=== PATIENT | male | born 1965 | race Caucasian/White ===

== ENCOUNTER 2020-07-13 12:59 | Emergency (ER) | payer OTHER, SELFPAY ==
[2020-07-13] MEDS ORDERED: SMZ./TMP. 800/160 MG TABLET ONE (15:10)
[2020-07-13] MEDS ORDERED: DOXYCYCLINE 100 MG CAP PO ONE (15:10)
--- NOTE | 2020-07-13 15:27 | RAD REPORT ---
EXAM DESCRIPTION: RAD - Elbow Left 3 View - 07/13/2020 3:06 pm CLINICAL HISTORY: Left elbow pain FINDINGS: No fracture or dislocation is seen. No significant bone or joint abnormality seen
--- NOTE | 2020-07-13 16:00 | ER ---
Nurse's Notes [facility] Name: Marcos Flowers Age: 55 yrs Sex: Male : 1965 Arrival Date: 07/13/2020 Time: 13:03 Bed 6 Private MD: Diagnosis: Olecranon bursitis, left elbow;Cellulitis and acute lymphangitis of other parts of limb-ELBOW Presentation: 07/13 13:05 Chief complaint: Patient states: left elbow swelling since and the swelling sv has increased down to the hand. Coronavirus screen: Client denies travel out of the [place] in the last 14 days. At this time, the client does not indicate any symptoms associated with coronavirus-19. Ebola Screen: No symptoms or risks identified at this time. Risk Assessment: Do you want to hurt yourself or someone else? Patient reports no desire to harm self or others. Onset of symptoms was July 10, 2020. 13:05 Method Of Arrival: Ambulatory sv 13:05 Acuity: ANNIE 3 sv 13:06 Initial Sepsis Screen: Does the patient meet any 2 criteria? HR > 90 bpm. No. Patient's sv initial sepsis screen is negative. Does the patient have a suspected source of infection? No. Patient's initial sepsis screen is negative. Triage Assessment: 13:08 General: Appears in no apparent distress. comfortable, Behavior is calm, cooperative, sv appropriate for age. Pain: Denies pain. Neuro: Level of Consciousness is awake, alert, obeys commands, Oriented to person, place, time, situation, Gait is steady. Respiratory: Airway is patent Respiratory effort is even, unlabored, Respiratory pattern is regular, symmetrical. Musculoskeletal: Swelling present in left elbow. Historical: - Allergies: 13:06 Codeine; sv - PMHx: 13:06 None; sv - PSHx: 13:06 Knee surgery; sv - Immunization history:: Adult Immunizations up to date. - Social history:: Smoking status: Patient reports the use of cigarette tobacco products, smokes two packs cigarettes per day. - Family history:: not pertinent. Screenin:13 Abuse screen: Denies threats or abuse. Nutritional screening: No deficits noted. ll1 Tuberculosis screening: No symptoms or risk factors identified. Fall Risk Total Coppola Fall Scale indicates No Risk (0-24 pts). Assessment: 14:55 General: Appears in no apparent distress. Behavior is calm, cooperative, appropriate ll1 for age. Pain: Complains of pain in left elbow Quality of pain is described as aching. Derm: Skin is red, Skin temperature is hot L elbow red, hot, and tender Reports redness L elbow. Musculoskeletal: Circulation, motion, and sensation intact. Capillary refill < 3 seconds, Range of motion: intact in all extremities, Reports pain in left elbow. Vital Signs: 13:06 BP 129 / 85; Pulse 97; Resp 16; Temp 98.7(TE); Pulse Ox 100% on R/A; Weight 70.31 kg; sv Height 5 ft. 11 in. (180.34 cm); 13:06 Body Mass Index 21.62 (70.31 kg, 180.34 cm) sv ED Course: 13:03 Patient arrived in ED. mr 13:05 Triage completed. sv 13:06 Arm band placed on. sv 14:35 Vandana Clinton, ANTHONY is Primary Nurse. ll1 14:36 Remy Hackett MD is Attending Physician. fan 14:36 Patient placed in an exam room, on a stretcher. ll1 15:04 Elbow Left 3 View XRAY In Process Unspecified. EDMS 15:58 Christian Cohn MD is Referral Physician. fan 16:13 No provider procedures requiring assistance completed. Patient did not have IV access ll1 during this emergency room visit. 16:14 Patient has correct armband on for positive identification. Bed in low position. Call ll1 light in reach. Cardiac monitoring not applicable on this patient. Administered Medications: 14:57 Drug: Bactrim (160 mg-800 mg (DS) 1 tablet Route: PO; ll1 16:11 Follow up: Response: No adverse reaction; RASS: Alert and Calm (0) ll1 14:57 Drug: Doxycycline 200 mg Route: PO; ll1 16:11 Follow up: Response: No adverse reaction; RASS: Alert and Calm (0) ll1 Outcome: 16:00 Discharge ordered by . fan 16:13 Discharged to home ambulatory. ll1 16:13 Condition: stable 16:13 Discharge instructions given to patient, Instructed on discharge instructions, follow up and referral plans. medication usage, Demonstrated understanding of instructions, follow-up care, medications, Prescriptions given X 3. 16:14 Patient left the ED. ll1 Signatures: Dispatcher [employer] Mariana Woods RN RN sv Anderson, Corey, MD MD [facility] mr Vandana Clinton RN RN ll1 Corrections: (The following items were deleted from the chart) 13:07 13:06 Pulse 97bpm; Resp 16bpm; Pulse Ox 100% RA; Temp 98.7F Temporal; 70.31 kg; Height sv 5 ft. 11 in.; BMI: 21.6; sv
--- NOTE | 2020-07-13 16:00 | EDPHYS ---
Physician Documentation [facility] Name: Marcos Flowers Age: 55 yrs Sex: Male : 1965 Arrival Date: 07/13/2020 Time: 13:03 Bed 6 Private MD: ED Physician Remy Hackett HPI: 07/13 15:47 This 55 yrs old Male presents to ER via Ambulatory with complaints of Elbow fan arm swelling. 15:47 The patient or guardian complains of pain, swelling, tenderness. The complaints affect fan the left elbow. Context: The problem was sustained at an unknown location. Onset: The symptoms/episode began/occurred 3 day(s) ago. Treatment prior to arrival includes: no previous treatment. Modifying factors: The symptoms are alleviated by remaining still, the symptoms are aggravated by movement, lifting weight, bending arm. Associated signs and symptoms: Pertinent positives:. Severity of symptoms: At their worst the symptoms were mild, in the emergency department the symptoms are unchanged. The patient has not experienced similar symptoms in the past. Historical: - Allergies: 13:06 Codeine; sv - PMHx: 13:06 None; sv - PSHx: 13:06 Knee surgery; sv - Immunization history:: Adult Immunizations up to date. - Social history:: Smoking status: Patient reports the use of cigarette tobacco products, smokes two packs cigarettes per day. - Family history:: not pertinent. ROS: 15:47 Constitutional: Negative for fever, chills, and weight loss, Eyes: Negative for injury, fan pain, redness, and discharge, ENT: Negative for injury, pain, and discharge, Neck: Negative for injury, pain, and swelling, Cardiovascular: Negative for chest pain, palpitations, and edema, Respiratory: Negative for shortness of breath, cough, wheezing, and pleuritic chest pain, Abdomen/GI: Negative for abdominal pain, nausea, vomiting, diarrhea, and constipation, Back: Negative for injury and pain, : Negative for injury, bleeding, discharge, and swelling, Skin: Negative for injury, rash, and discoloration, Neuro: Negative for headache, weakness, numbness, tingling, and seizure, Psych: Negative for depression, anxiety, suicide ideation, homicidal ideation, and hallucinations, Allergy/Immunology: Negative for hives, rash, and allergies, Endocrine: Negative for neck swelling, polydipsia, polyuria, polyphagia, and marked weight changes, Hematologic/Lymphatic: Negative for swollen nodes, abnormal bleeding, and unusual bruising. 15:47 MS/extremity: Positive for erythema, pain, swelling, tenderness, of the left elbow. Exam: 15:47 Constitutional: This is a well developed, well nourished patient who is awake, alert, fan and in no acute distress. Head/Face: Normocephalic, atraumatic. Eyes: Pupils equal round and reactive to light, extra-ocular motions intact. Lids and lashes normal. Conjunctiva and sclera are non-icteric and not injected. Cornea within normal limits. Periorbital areas with no swelling, redness, or edema. ENT: Nares patent. No nasal discharge, no septal abnormalities noted. Tympanic membranes are normal and external auditory canals are clear. Oropharynx with no redness, swelling, or masses, exudates, or evidence of obstruction, uvula midline. Mucous membranes moist. Neck: Trachea midline, no thyromegaly or masses palpated, and no cervical lymphadenopathy. Supple, full range of motion without nuchal rigidity, or vertebral point tenderness. No Meningismus. Chest/axilla: Normal chest wall appearance and motion. Nontender with no deformity. No lesions are appreciated. Cardiovascular: Regular rate and rhythm with a normal S1 and S2. No gallops, murmurs, or rubs. Normal PMI, no JVD. No pulse deficits. Respiratory: Lungs have equal breath sounds bilaterally, clear to auscultation and percussion. No rales, rhonchi or wheezes noted. No increased work of breathing, no retractions or nasal flaring. Abdomen/GI: Soft, non-tender, with normal bowel sounds. No distension or tympany. No guarding or rebound. No evidence of tenderness throughout. Back: No spinal tenderness. No costovertebral tenderness. Full range of motion. Male : Normal genitalia with no discharge or lesions. Skin: Warm, dry with normal turgor. Normal color with no rashes, no lesions, and no evidence of cellulitis. Neuro: Awake and alert, GCS 15, oriented to person, place, time, and situation. Cranial nerves II-XII grossly intact. Motor strength 5/5 in all extremities. Sensory grossly intact. Cerebellar exam normal. Normal gait. Psych: Awake, alert, with orientation to person, place and time. Behavior, mood, and affect are within normal limits. 15:47 Musculoskeletal/extremity: ROM: intact in all extremities, full active range of motion, full passive range of motion, Circulation is intact in all extremities. Sensation intact. Compartment Syndrome exam of affected extremity: is normal. Joints: All joints appear normal with full range of motion. DVT Exam: negative Homans' sign noted on exam, no appreciated bluish discoloration, pain, swelling, tenderness, erythema, increased warmth. Vital Signs: 13:06 BP 129 / 85; Pulse 97; Resp 16; Temp 98.7(TE); Pulse Ox 100% on R/A; Weight 70.31 kg; sv Height 5 ft. 11 in. (180.34 cm); 13:06 Body Mass Index 21.62 (70.31 kg, 180.34 cm) sv MDM: 14:36 Patient medically screened. [facility] 15:54 Differential diagnosis: contusion, tendonitis. Data reviewed: vital signs, nurses [facility] notes, radiologic studies, plain films. Data interpreted: home service technician: rate is 97 beats/min, rhythm is regular, Pulse oximetry: on room air is 100 %. Test interpretation: by ED physician or midlevel provider: plain radiologic studies. Counseling: I had a detailed discussion with the patient and/or guardian regarding: the historical points, exam findings, and any diagnostic results supporting the discharge/admit diagnosis, radiology results, the need for outpatient follow up, for definitive care, a family practitioner, a orthopedic surgeon. 07/13 14:47 Order name: Elbow Left 3 View XRAY [facility] 07/13 14:47 Order name: Ice pack; Complete Time: 14:51 [facility] Administered Medications: 14:57 Drug: Bactrim (160 mg-800 mg (DS) 1 tablet Route: PO; ll1 16:11 Follow up: Response: No adverse reaction; RASS: Alert and Calm (0) ll1 14:57 Drug: Doxycycline 200 mg Route: PO; ll1 16:11 Follow up: Response: No adverse reaction; RASS: Alert and Calm (0) ll1 Disposition: 07/13/20 16:00 Discharged to Home. Impression: Olecranon bursitis, left elbow, Cellulitis and acute lymphangitis of other parts of limb - ELBOW. - Condition is Stable. - Discharge Instructions: Bursitis, Cryotherapy, [id number], Cellulitis, Adult, [id number], Elbow Bursitis, Bursitis, [id number], Elbow Bursitis, [id number], Cryotherapy. - Prescriptions for Ibuprofen 600 mg Oral Tablet - take 1 tablet by ORAL route every 8 hours As needed take with food; 21 tablet. Doxycycline Hyclate 100 mg Oral Tablet - take 1 tablet by ORAL route every 12 hours; 20 tablet. Bactrim DS 800- 160 mg Oral Tablet - take 1 tablet by ORAL route every 12 hours for 10 days; 20 tablet. - Medication Reconciliation Form, Thank You Letter, Antibiotic Education, Prescription Opioid Use form. - Follow up: Private Physician; When: 2 - 3 days; Reason: Recheck today's complaints, Continuance of care, Re-evaluation by your physician. Follow up: Christian Cohn MD; When: 2 - 3 days; Reason: Recheck today's complaints, Re-evaluation by your physician. - Problem is new. - Symptoms have improved. Signatures: Dispatcher [employer] Mariana Woods, RN RN Remy Lyons MD MD cha Lewis, Lynsay, RN RN ll1 Corrections: (The following items were deleted from the chart) 16:14 16:00 07/13/2020 16:00 Discharged to Home. Impression: Olecranon bursitis, left elbow; ll1 Cellulitis and acute lymphangitis of other parts of limb - ELBOW. Condition is Stable. Forms are Medication Reconciliation Form, Thank You Letter, Antibiotic Education, Prescription Opioid Use. Follow up: Private Physician; When: 2 - 3 days; Reason: Recheck today's complaints, Continuance of care, Re-evaluation by your physician. Follow up: Dr. Christian Cohn; When: 2 - 3 days; Reason: Recheck today's complaints, Re-evaluation by your physician. Problem is new. Symptoms have improved. fan
[2020-07-13 16:24] VITALS: BP 129/85; TEMP 98.7; O2SAT 100
== END 2020-07-13 16:14 | disposition home or self-care (01) ==
LOC: ER 12:59
DX: L03.114 Cellulitis of left upper limb (principal); M70.22 Olecranon bursitis, left elbow; L03.124 Acute lymphangitis of left upper limb; F17.210 Nicotine dependence, cigarettes, uncomplicated; Z88.5 Allergy status to narcotic agent
CPT/HCPCS: 99283